=== PATIENT | female | born 1960 | race Caucasian/White ===

== ENCOUNTER 2016-10-01 07:39 | Outpatient (CLI) | payer OTHER | END 2016-10-01 07:40 | disposition home or self-care (01) | DX: R73.03 Prediabetes (principal); E78.5 Hyperlipidemia, unspecified; K91.2 Postsurgical malabsorption, not elsewhere classified; Z98.84 Bariatric surgery status ==

== ENCOUNTER 2016-11-13 10:03 | Emergency (ER) | payer OTHER ==
[2016-11-13 12:08] VITALS: BP 120/79
[2016-11-13] MEDS ORDERED: LIDOCAINE 2% 10 ML MDV SUBQ STA (12:29)
[2016-11-13] MEDS ORDERED: LIDOCAINE 2% 10 ML MDV ONE (12:31)
--- NOTE | 2016-11-13 12:32 | ED Physician Documentation ---
PD HPI FEMALE - Stated complaint Stated Complaint: FEMALE - Chief complaint Chief Complaint: General - History obtained from History obtained from: Patient - History of Present Illness Timing - onset: How many days ago (4) Timing - duration: Days (4) Timing - details: Gradual onset Pain level max: 6 Pain level max: 6 Associated symptoms: Other (L labial swelling) Similar symptoms before: Has not had sx before Recently seen: Not recently seen - Additional information Additional information: states feels like a cyst on her L labia Review of Systems Constitutional: denies: Fever, Chills Respiratory: denies: Cough GI: denies: Nausea, Vomiting, Diarrhea Skin: denies: Rash Musculoskeletal: denies: Neck pain, Back pain Neurologic: denies: Headache PD PAST MEDICAL HISTORY - Past Medical History Past Medical History: Yes Cardiovascular: Murmur Respiratory: None Neuro: None Endocrine/Autoimmune: None GI: None 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 HEENT: None Psych: Anxiety Musculoskeletal: None, Other Derm: Psoriasis - Past Surgical History Past Surgical History: Yes Cardiovascular: Other HEENT: Other - Present Medications Home Medications: Ambulatory Orders Medication Instructions Recorded Confirmed Citalopram [CeleXA] 1 mg PO DAILY 10/10/14 11/13/16 Sulfamethox/Trimeth 800/160 1 each PO BID #14 tablet 11/13/16 [Bactrim Ds 800/160] - Allergies Allergies/Adverse Reactions: Allergies Allergy/AdvReac Type Severity Reaction Status Date / Time No Known Drug Allergies Allergy Verified 11/13/16 10:14 - Social History Does the pt smoke?: No Smoking Status: Never smoker Does the pt drink ETOH?: No Does the pt have substance abuse?: No - Immunizations Immunizations are current?: Yes PD ED PE NORMAL - Vitals Vital signs reviewed: Yes - General General: Alert and oriented X 3, No acute distress - Female Female : Other (1x1cm, swelling, induration to the L labia) - Derm Derm: Warm and dry - Neuro Neuro: Alert and oriented X 3 Results - Vitals Vitals: Vital Signs - 24 hr 11/13/16 11/13/16 10:11 12:07 Temperature 36.6 C 36.8 C Heart Rate 99 95 Respiratory 14 20 Rate Blood Pressure 125/78 120/79 O2 Saturation 100 98 Oxygen O2 Source Room air - Labs Labs: Microbiology 11/13/16 12:48 Wound Culture - Preliminary Abscess Procedures - Abscess I&D (location) left labia Preparation: Lidocaine 2 % Incision: Incised with scalpel, Purulent drainage, Packed, Culture obtained Other: Pt tolerated well, Dressing applied, Antibiotic prescribed PD MEDICAL DECISION MAKING - ED course Complexity details: considered differential, d/w patient ED course: Patient is a 56-year-old female with a left labial abscess. This was incised and drained in the emergency department. Tolerated well. Will place on antibiotics as well. She is well-appearing, nontoxic. Has an appointment already with her doctor on Wednesday. Declines pain medication here or for home. Patient counseled regarding signs and symptoms for which I believe and urgent re -evaluation would be necessary. Patient with good understanding of and agreement to plan and is comfortable going home at this time This document was made in part using voice recognition software. While efforts are made to proofread this document, sound alike and grammatical errors may occur. Departure - Departure Disposition: Home, Self Care Clinical Impression: Labial cyst Condition: Good Instructions: ED [facility] Cyst IandD Follow-Up: Akhil Roman MD [Primary Care Provider] - Within 1 week Prescriptions: Sulfamethox/Trimeth 800/160 [Bactrim Ds 800/160] 1 each PO BID #14 tablet Comments: Take all antibiotics until gone. Return if you worsen. Follow-up with your doctor on Wednesday for a recheck. Forms: Activity restrictions Discharge Date/Time: 11/13/16 13:01
== END 2016-11-13 13:01 | disposition home or self-care (01) ==
LOC: ED 10:03
DX: N90.7 Vulvar cyst (principal); F41.9 Anxiety disorder, unspecified
CPT/HCPCS: 56405; 87070; 87077; 87205; 99283

== ENCOUNTER 2016-11-26 10:07 | Outpatient (CLI) | payer OTHER ==
[2016-11-26 11:35] LABS: HEMOGLOBIN A1C 0.51 g/dL
--- NOTE | 2016-11-27 13:57 | Mammography Report ---
DIGITAL SCREENING MAMMOGRAM: 11/26/2016 CLINICAL INDICATION: A 56-year-old, for screening. COMPARISON: 02/2015, 07/2013, 01/2011. TECHNIQUE: Routine CC and MLO projections were obtained of the breasts. FINDINGS: Scattered fibroglandular tissue is present within the breasts. There are no dominant ella s, suspicious microcalcifications, or secondary signs of malignancy. In comparison to the previous st udies, there are no significant changes. ASSESSMENT: NO MAMMOGRAPHIC EVIDENCE OF MALIGNANCY. NO SIGNIFICANT INTERVAL CHANGES. RECOMMENDATION: Screening mammography is recommended annually. BIRADS category 1 - negative. STANDARD QUALIFYING STATEMENTS 1. This examination was reviewed with the aid of Computed-Aided Detection (CAD). 2. A negative or benign imaging report should not delay biopsy if clinically suspicious findings are present. Consider surgical consultation if warranted. More than 5% of cancers are not identified by i maging. 3. Dense breasts may obscure an underlying neoplasm. JOB #: [id number] EXT JOB #:[id number]
== END 2016-11-26 10:08 | disposition home or self-care (01) ==
LOC: DI 10:07
PROVIDERS: ATTEND Family Medicine
DX: Z00.00 Encounter for general adult medical examination without abnormal findings (principal); Z12.31 Encounter for screening mammogram for malignant neoplasm of breast; R73.01 Impaired fasting glucose
CPT/HCPCS: 36415; 77067; 83036; 84443

== ENCOUNTER 2017-03-29 10:41 | Outpatient (CLI) | payer OTHER | END 2017-03-29 10:42 | disposition home or self-care (01) | LOC: LAB.WCP 10:41 | PROVIDERS: ATTEND Family Medicine | DX: M79.641 Pain in right hand (principal) | CPT/HCPCS: 36415; 84550; 85651 ==

== ENCOUNTER 2017-09-01 17:48 | Outpatient (CLI) | payer OTHER | END 2017-09-01 17:49 | disposition critical access hospital (66) | LOC: EMS 17:48 | PROVIDERS: ATTEND Surgery | DX: R10.11 Right upper quadrant pain (principal) | CPT/HCPCS: A0425; A0429 ==

== ENCOUNTER 2017-09-01 18:03 | Emergency (ER) | payer OTHER ==
[2017-09-01 18:34] LABS: BASOPHILS # (AUTO) 0.1 10^3/uL (0.0-0.1); EOSINOPHILS # (AUTO) 0.2 10^3/uL (0.0-0.7); EOSINOPHILS % (AUTO) 1.4 %; HGB - HEMOGLOBIN 13.5 g/dL (12.0-16.0); LYMPHOCYTES # (AUTO) 2.5 10^3/uL (1.5-3.5); LYMPHOCYTES % (AUTO) 20.3 %; MEAN CORPUSCULAR HEMOGLOBIN 26.9 pg (27.0-31.0); MEAN CORPUSCULAR HGB CONC 32.4 g/dL (32.0-36.0); MEAN CORPUSCULAR VOLUME 83.2 fL (81.0-99.0); MEAN PLATELET VOLUME 7.9 fL (7.9-10.8); MONOCYTES # (AUTO) 0.6 10^3/uL (0.0-1.0); MONOCYTES % (AUTO) 4.5 %; NEUTROPHILS % (AUTO) 72.8 %; PLT - PLATELET COUNT 339 10^3/uL (130-450); RED CELL DISTRIBUTION WIDTH 13.1 % (12.0-15.0); WHITE BLOOD COUNT 12.4 x10^3/uL (4.8-10.8)
[2017-09-01 18:45] LABS: ALBUMIN 4.2 g/dL (3.2-5.5); ALBUMIN/GLOBULIN RATIO 1.2 (1.0-2.2); BILIRUBIN,TOTAL 0.4 mg/dL (0.2-1.0); CALCIUM 8.8 mg/dL (8.5-10.3); CREATININE 0.5 mg/dL (0.4-1.0); TOTAL PROTEIN 7.6 g/dL (6.7-8.2)
[2017-09-01 19:49] LABS: BILIRUBIN,URINE NEGATIVE (NEGATIVE); GLUCOSE, URINE (UA) NEGATIVE (NEGATIVE); KETONES,URINE (UA) NEGATIVE (NEGATIVE); LEUKOCYTE ESTERASE, URINE NEGATIVE (NEGATIVE); NITRITE,URINE NEGATIVE (NEGATIVE); OCCULT BLOOD,URINE NEGATIVE (NEGATIVE); PH,URINE 7.5 PH (5.0-7.5); PROTEIN,URINE NEGATIVE (NEGATIVE); UROBILINOGEN,URINE 0.2 (NORMAL) E.U./dL (NORMAL)
[2017-09-01 19:50] LABS: CLARITY,URINE CLEAR (CLEAR)
--- NOTE | 2017-09-01 20:06 | ED Physician Documentation ---
PD HPI ABD PAIN - Stated complaint Stated Complaint: ABD PX - Chief complaint Chief Complaint: Abd Pain - History obtained from History obtained from: Patient - History of Present Illness Timing - onset: Today Timing - details: Abrupt onset (severe RUQ abd pain after having some coffee. did not have full meal.). No: Still present (has tapered quite a bit with just moderate pain left here in ED.) Quality: Aching, Sharp, Pain Location: RUQ Radiation: Upper back Improved by: No: Position Worsened by: Breathing, Palpation. No: Moving, Position Associated symptoms: Nausea, Loss of appetite. No: Fever, Vomiting, Diarrhea, Dysuria Similar symptoms before: Has not had sx before Recently seen: Not recently seen Review of Systems Constitutional: denies: Fever, Chills, Myalgias Nose: denies: Rhinorrhea / runny nose, Congestion Throat: denies: Sore throat Cardiac: denies: Chest pain / pressure, Palpitations Respiratory: denies: Dyspnea, Cough GI: reports: Abdominal Pain, Nausea. 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 ) Cardiovascular: Other HEENT: Other - Present Medications Home Medications: Ambulatory Orders Medication Instructions Recorded Confirmed Citalopram [CeleXA] 1 mg PO DAILY 10/10/14 11/13/16 Dicyclomine [Bentyl] 20 mg PO QID PRN #20 capsule 09/01/17 HYDROcod/ACETAM 5/325 [Avis 5/325] 1 tab PO Q6H PRN #12 tablet 09/01/17 Ondansetron Odt [Zofran] 4 mg TL Q6H PRN #15 tablet 09/01/17 Pantoprazole Sodium 40 mg PO 09/01/17 - Allergies Allergies/Adverse Reactions: Allergies Allergy/AdvReac Type Severity Reaction Status Date / Time No Known Drug Allergies Allergy Verified 09/01/17 18:10 - Social History Does the pt smoke?: No Smoking Status: Never smoker Does the pt drink ETOH?: No Does the pt have substance abuse?: No - Immunizations Immunizations are current?: Yes PD ED PE NORMAL - Vitals Vital signs reviewed: Yes - General General: Alert and oriented X 3, No acute distress, Well developed/nourished - HEENT HEENT: PERRL, Ears normal, Pharynx benign - Neck Neck: Supple, no meningeal sign, No adenopathy - Cardiac Cardiac: RRR, No murmur - Respiratory Respiratory: Clear bilaterally - Abdomen Abdomen: Normal bowel sounds, Soft, Non distended, No organomegaly, Other ( tender RUQ with some local guarding but no percussion nor rebound tenderness. ) - Female Female : Deferred - Rectal Rectal: Deferred - Back Back: No CVA TTP - Derm Derm: Normal color, Warm and dry Results - Vitals Vitals: Oxygen O2 Source Room air - Labs Labs: Laboratory Tests 09/01/17 09/01/17 09/01/17 18:16 18:29 18:29 WBC 12.4 H RBC 5.00 Hgb 13.5 Hct 41.6 MCV 83.2 MCH 26.9 L MCHC 32.4 RDW 13.1 Plt Count 339 MPV 7.9 Neut # 9.0 H Lymph # 2.5 [place] # 0.6 Eos # 0.2 Baso # 0.1 Absolute Nucleated RBC 0.01 Nucleated RBC % 0.1 Sodium 137 Potassium 3.6 Chloride 103 Carbon Dioxide 26 Anion Gap 8.0 BUN 20 Creatinine 0.5 Estimated GFR (MDRD) 128 Glucose 110 H Calcium 8.8 Total Bilirubin 0.4 AST 70 H ALT 46 Alkaline Phosphatase 97 Total Protein 7.6 Albumin 4.2 Globulin 3.4 Albumin/Globulin Ratio 1.2 Lipase 30 Urine Color YELLOW Urine Clarity CLEAR Urine pH 7.5 Ur Specific [place] 1.020 Urine Protein NEGATIVE Urine Glucose (UA) NEGATIVE Urine Ketones NEGATIVE Urine Occult Blood NEGATIVE Urine Nitrite NEGATIVE Urine Bilirubin NEGATIVE Urine Urobilinogen 0.2 (NORMAL) Ur Leukocyte Esterase NEGATIVE Ur Microscopic Review NOT INDICATED Urine Culture Comments NOT INDICATED - Rads (name of study) upper abd U/S Radiology: Prelim report reviewed (some mild GB wall thickening and surrounding fluid/edema. CBD is normal. ) PD MEDICAL DECISION MAKING - ED course Complexity details: reviewed results, considered differential, d/w patient Departure - Departure Disposition: 01 Home, Self Care Clinical Impression: Biliary colic Abdominal pain Qualifiers: Abdominal location: right upper quadrant Qualified Code(s): R10.11 - Right upper quadrant pain Condition: Stable Record reviewed to determine appropriate education?: Yes Instructions: ED Abdominal Pain Gallstone Poss Follow-Up: Nuha Khan MD [Primary Care Provider] - Prescriptions: Dicyclomine [Bentyl] 20 mg PO QID PRN #20 capsule PRN Reason: Spasms HYDROcod/ACETAM 5/325 [Avis 5/325] 1 tab PO Q6H PRN #12 tablet PRN Reason: Pain Ondansetron Odt [Zofran] 4 mg TL Q6H PRN #15 tablet PRN Reason: Nausea / Vomiting Comments: Low-fat diet for now. Based on her symptoms and the ultrasound findings, it is suggestive that he had a gallbladder spasm and maybe passed a small stone. There are no stones evident on ultrasound right now. There was a little bit of inflammation in swelling around the gallbladder. See if this improves in the next day or 2. Use hydrocodone or just Tylenol if needed for pains. Call your bariatric surgeon to relay the findings and see if they want to do any other particular testing or such. If you have recurring episodes in the near future, try ondansetron for nausea and dicyclomine for spasm and hydrocodone for pain combined together to see if it aborts the symptoms and episode. Recheck if the current pain is not completely resolved within a day or so. Discharge Date/Time: 09/01/17 22:57
[2017-09-01] MEDS ORDERED: DICYCLOMINE 10 MG CAPSULE PO STA (20:34)
[2017-09-01] MEDS ORDERED: KETOROLAC 60 MG/2 ML VIAL IVP STA (20:34)
[2017-09-01] MEDS ORDERED: MAG HYDROX/AL HYDROX/SIMETH 30 ML UDC PO STA (20:34)
[2017-09-01 21:16] VITALS: BP 111/73
--- NOTE | 2017-09-01 21:33 | Ultrasound Report ---
EXAM: ABDOMEN ULTRASOUND LIMITED, RUQ EXAM DATE: 09/01/2017 09:23 PM. CLINICAL HISTORY: RUQ abd pain today. COMPARISON: None. TECHNIQUE: Real-time scanning was performed with static images obtained. FINDINGS: Liver: Diffusely echogenic and heterogeneous. No definite mass. Mildly enlarged, 18.4 cm. Main portal vein flow: Hepatopetal. Gallbladder: No definite stones. Mild wall thickening measuring 3.6 mm. Small amount of pericholecyst ic fluid. No localized tenderness (medicated patient). Biliary System: CBD measures 4 mm. No intrahepatic or extrahepatic ductal dilatation. Other: Unremarkable visualized portions of right kidney and pancreas. IMPRESSION: 1. Fatty liver, mild hepatomegaly. 2. Mild gallbladder wall thickening and pericholecystic fluid, nonspecific findings. [facility] Referring Provider Line: [phone] SITE ID: [id number]
[2017-09-01] MEDS ORDERED: HYDROcod/ACET 5/325 Prepack 4 PO STA (22:01)
[2017-09-01] MEDS ORDERED: ONDANSETRON ODT 4 MG Prepack 2 TL PRN (22:01)
== END 2017-09-01 22:57 | disposition home or self-care (01) ==
LOC: EDUNIT# → ED 18:03
DX: K80.50 Calculus of bile duct without cholangitis or cholecystitis without obstruction (principal); R10.11 Right upper quadrant pain
CPT/HCPCS: 36415; 76705; 80053; 81003; 83690; 85025; 96374; 99283; A9270; 81001; 87086

== ENCOUNTER 2017-12-14 07:46 | Outpatient (CLI) | payer OTHER ==
[2017-12-14 08:17] LABS: VBG PH 7.394 (7.31-7.41)
[2017-12-14 08:23] LABS: BASOPHILS % (AUTO) 0.8 %; EOSINOPHILS # (AUTO) 0.2 10^3/uL (0.0-0.7); EOSINOPHILS % (AUTO) 3.5 %; HGB - HEMOGLOBIN 13.1 g/dL (12.0-16.0); LYMPHOCYTES # (AUTO) 2.3 10^3/uL (1.5-3.5); LYMPHOCYTES % (AUTO) 37.7 %; MEAN CORPUSCULAR HEMOGLOBIN 28.3 pg (27.0-31.0); MEAN CORPUSCULAR HGB CONC 33.3 g/dL (32.0-36.0); MEAN CORPUSCULAR VOLUME 84.9 fL (81.0-99.0); MEAN PLATELET VOLUME 8.4 fL (7.9-10.8); MONOCYTES # (AUTO) 0.4 10^3/uL (0.0-1.0); MONOCYTES % (AUTO) 6.1 %; NEUTROPHILS # (AUTO) 3.1 10^3/uL (1.5-6.6); NEUTROPHILS % (AUTO) 51.9 %; PLT - PLATELET COUNT 299 10^3/uL (130-450); RED BLOOD COUNT 4.63 10^6/uL (4.20-5.40); RED CELL DISTRIBUTION WIDTH 12.6 % (12.0-15.0)
[2017-12-14 08:38] LABS: HB2 TOTAL 14.5 g/dL; HEMOGLOBIN A1C 0.54 g/dL; HEMOGLOBIN A1C % 5.6 % (4.6-6.2)
[2017-12-14 08:53] LABS: % IRON SATURATION 24 % (20-50); ALBUMIN 3.7 g/dL (3.2-5.5); ALBUMIN/GLOBULIN RATIO 1.1 (1.0-2.2); ALKALINE PHOSPHATASE 89 IU/L (42-121); ALT ALANINE AMINOTRANSFERASE 25 IU/L (10-60); AST ASPARTATE AMINOTRANSFERASE 21 IU/L (10-42); BILIRUBIN,TOTAL 0.6 mg/dL (0.2-1.0); BUN - BLOOD UREA NITROGEN 17 mg/dL (6-20); CARBON DIOXIDE - CO2 28 mmol/L (21-32); CHLORIDE 101 mmol/L (101-111); CHOL/HDL RATIO 3.1 (<4.4); CHOLESTEROL 184 mg/dL; CREATININE 0.6 mg/dL (0.4-1.0); GFR - MDRD 104 (>89); GLUCOSE 102 mg/dL (70-100); HDL CHOLESTEROL 60 mg/dL; IRON 83 ug/dL (28-170); LDL CHOLESTEROL,CALCULATED 102 mg/dL; LDL/HDL RATIO 1.7 (<4.4); MAGNESIUM 2.1 mg/dL (1.7-2.8); SODIUM 136 mmol/L (135-145); TOTAL IRON BINDING CAPACITY 342 ug/dL (250-450); TOTAL PROTEIN 7.2 g/dL (6.7-8.2); TRANSFERRIN 244 mg/dL (192-382); VLDL CHOLESTEROL 22 mg/dL
== END 2017-12-14 07:47 | disposition home or self-care (01) ==
LOC: LAB 07:46
PROVIDERS: ATTEND Physician Assistant
DX: E78.5 Hyperlipidemia, unspecified (principal); R73.03 Prediabetes; M25.50 Pain in unspecified joint; Z98.84 Bariatric surgery status
CPT/HCPCS: 36415; 80053; 80061; 82306; 82330; 82607; 82728; 82747; 83036; 83540; 83721; 83735; 83970; 84425; 84466; 85025

== ENCOUNTER 2018-05-04 16:44 | Emergency (ER) | payer OTHER ==
--- NOTE | 2018-05-04 17:11 | ED Physician Documentation ---
PD HPI ANIMAL BITE - Stated complaint Stated Complaint: CAT BITE RT HAND - Chief complaint Chief Complaint: Laceration - History obtained from History obtained from: Patient - History of Present Illness Location of injury(ies): Right hand Details of the event: Cat, Well appearing, Provoked Timing - onset: Yesterday Timing - details: Abrupt onset Worsened by: Palpating Associated symptoms: Swelling, Discolored (red). 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 HEENT: None Psych: Anxiety Musculoskeletal: None, Other Derm: Psoriasis - Past Surgical History Past Surgical History: Yes General: Gastric surgery Cardiovascular: Other HEENT: Other - Present Medications Home Medications: Ambulatory Orders Medication Instructions Recorded Confirmed Citalopram [CeleXA] 10 mg PO DAILY 10/10/14 11/13/16 Pantoprazole Sodium 40 mg PO 09/01/17 Amox/Clav 875/125 [Augmentin] 1 each PO Q12H #14 tablet 05/04/18 - Allergies Allergies/Adverse Reactions: Allergies Allergy/AdvReac Type Severity Reaction Status Date / Time No Known Drug Allergies Allergy Verified 05/04/18 16:58 - Social History Does the pt smoke?: No Smoking Status: Never smoker Does the pt drink ETOH?: No Does the pt have substance abuse?: No - Immunizations Immunizations are current?: Yes - POLST Patient has POLST: No PD ED PE NORMAL - Vitals Vital signs reviewed: Yes - General General: Alert and oriented X 3, No acute distress, Well developed/nourished - Cardiac Cardiac: RRR, No murmur - Respiratory Respiratory: Clear bilaterally - Derm Derm: Normal color, Warm and dry - Extremities Extremities: Other (dorsum right hand with 2 punctures, one of which has rdness, tenderness, swelling without fluctuance. Normal finger flex/extend. Normal sensatin in the area. ) Results - Vitals Vitals: Vital Signs - 24 hr 05/04/18 05/04/18 16:57 17:36 Temperature 36.8 C 36.8 C Heart Rate 109 H 88 Respiratory 18 18 Rate Blood Pressure 131/73 H 128/71 O2 Saturation 97 97 Oxygen O2 Source Room air Departure - Departure Disposition: 01 Home, Self Care Clinical Impression: Cat bite of right hand with infection Qualifiers: Encounter type: initial encounter Qualified Code(s): S61.451A - Open bite of right hand, initial encounter Condition: Stable Record reviewed to determine appropriate education?: Yes Instructions: ED Bite Cat Follow-Up: Nuha Khan MD [Primary Care Provider] - Prescriptions: Amox/Clav 875/125 [Augmentin] 1 each PO Q12H #14 tablet Comments: Warm moist towels or soaks to the area to promote drainage from the bite wounds. He can apply ointment to it after that. Do that 2-3 times a day. Augmentin antibiotic twice daily for a week for the infection. Tylenol or ibuprofen if needed for pains. Recheck if not improving over the next 2-3 days and return sooner if it is worsening a lot. Discharge Date/Time: 05/04/18 17:36
[2018-05-04] MEDS ORDERED: AMOX/CLAV 875 MG/125 MG TABLET PO STA (17:17)
[2018-05-04 17:37] VITALS: BP 128/71
== END 2018-05-04 17:36 | disposition home or self-care (01) ==
LOC: ED 16:44
DX: S61.451A Open bite of right hand, initial encounter (principal); W55.01XA Bitten by cat, initial encounter
CPT/HCPCS: 99282; 99283; A9270